=== PATIENT | female | born 1935 | race African-American/Black ===

== ENCOUNTER 2017-08-10 19:50 | Emergency (ER) | payer MEDICARE ==
[~2017-08-10] VITALS: Ht 162.6 cm; Wt 80.0 kg
[2017-08-10] MEDS ORDERED: SODIUM CHLORIDE FLUSH 10ML SYR IVF ONE (20:30)
[2017-08-10] MEDS ORDERED: PLEASE ENTER ALLERGIES MC SCH (20:30)
[2017-08-10] MEDS ORDERED: MORPHINE SULFATE 4 MG/ML, 1ML IVPush PRN (20:30)
[2017-08-10] MEDS ORDERED: MORPHINE SULFATE 4 MG/ML, 1ML ONE (20:31)
[2017-08-10 20:55] LABS: BASOPHILS # (AUTO) 0.02 x10^3/uL (0-0.1); BASOPHILS % (AUTO) 0 % (0-1); EOSINOPHILS # (AUTO) 0.09 x10^3/uL (0-0.4); EOSINOPHILS % (AUTO) 1 % (1-7); LYMPHOCYTES # (AUTO) 1.08 x10^3/uL (1-3.4); LYMPHOCYTES % (AUTO) 11 % (22-44); MD NO; MEAN CORPUSCULAR HEMOGLOBIN 27.7 pg (27.0-34.8); MEAN CORPUSCULAR HGB CONC 32.2 g/dL (32.4-35.8); MEAN CORPUSCULAR VOLUME 85.9 fL (80-100); MEAN PLATELET VOLUME 9.4 fL (7.4-10.4); MONOCYTES # (AUTO) 0.62 x10^3/uL (0.2-0.8); MONOCYTES % (AUTO) 6 % (2-9); NEUTROPHILS % (AUTO) 82 % (42-75); PLATELET COUNT 237 x10^3/uL (130-400); RED BLOOD COUNT 4.63 x10^6/uL (3.82-5.3); RED CELL DISTRIBUTION WIDTH 14.6 % (9.6-15.2)
[2017-08-10 21:08] LABS: ALANINE AMINOTRANSFERASE 29 U/L (12-78); ALBUMIN 3.4 g/dL (3.4-5.0); ANION GAP 10 mmol/L (5-15); CALCIUM 9.3 mg/dL (8.5-10.1); CHLORIDE 106 mmol/L (98-107); CREATININE 1.32 mg/dL (0.55-1.02)
[2017-08-10 21:10] LABS: ALKALINE PHOSPHATASE 85 U/L (45-117); BILIRUBIN,TOTAL 0.4 mg/dL (0.2-1.0); TOTAL PROTEIN 6.6 g/dL (6.4-8.2)
[2017-08-10 21:58] VITALS: BP 117/46
== END 2017-08-10 22:24 | disposition home or self-care (01) ==
LOC: ED 22:22
DX: R55 Syncope and collapse (principal); M79.651 Pain in right thigh; R42 Dizziness and giddiness; E78.5 Hyperlipidemia, unspecified; I10 Essential (primary) hypertension; E11.9 Type 2 diabetes mellitus without complications; I48.91 Unspecified atrial fibrillation
CPT/HCPCS: 36415; 71045; 72170; 80053; 85025; 93005; 96374; 99285

== ENCOUNTER → 2017-09-03 | Outpatient (CLI) | payer MEDICARE ==
[~2017-09-03] MED LIST: GADOBUTROL 7.5 MMOL/7.5 ML VIAL ONE
== END | disposition home or self-care (01) ==
LOC: CFH 12:29
PROVIDERS: ATTEND Psychiatry & Neurology Neurology
DX: I67.82 Cerebral ischemia (principal); R90.82 White matter disease, unspecified; G31.89 Other specified degenerative diseases of nervous system
CPT/HCPCS: 70553; A9585

== ENCOUNTER → 2017-09-07 | Outpatient (CLI) | payer MEDICARE | END | disposition home or self-care (01) | LOC: CARD 12:58 | PROVIDERS: ATTEND Psychiatry & Neurology Neurology | DX: G40.89 Other seizures (principal) | CPT/HCPCS: 95819 ==

== ENCOUNTER 2018-04-12 09:22 | Day surgery (SDC) | payer MEDICARE ==
[~2018-04-12] VITALS: Ht 162.6 cm; Wt 59.0 kg
[2018-04-12] MEDS ORDERED: LIDOCAINE 1%, 20ML ONE (09:40)
[2018-04-12 09:54] VITALS: BP 132/58
== END 2018-04-12 11:27 | disposition home or self-care (01) ==
LOC: CACL 09:22
PROVIDERS: ATTEND Internal Medicine Cardiovascular Disease
DX: R55 Syncope and collapse (principal); E78.5 Hyperlipidemia, unspecified; E11.9 Type 2 diabetes mellitus without complications; D53.1 Other megaloblastic anemias, not elsewhere classified; Z88.1 Allergy status to other antibiotic agents; Z88.8 Allergy status to other drugs, medicaments and biological substances
CPT/HCPCS: 33285; C1764; J3490

== ENCOUNTER 2018-06-03 16:47 | Inpatient (IN) | payer MEDICARE ==
[~2018-06-03] VITALS: Ht 157.5 cm; Wt 62.9 kg
[2018-06-03] MEDS ORDERED: SODIUM CHLORIDE FLUSH 10ML SYR IVF ONE (17:00)
[2018-06-03] MEDS ORDERED: ACETAMINOPHEN 325 MG TABLET PO ONE (17:00)
[2018-06-03] MEDS ORDERED: ACETAMINOPHEN 325 MG TABLET ONE (17:08)
[2018-06-03] MEDS ORDERED: ATOR40TA78 PO (17:24)
[2018-06-03] MEDS ORDERED: METF500T17 PO (17:24)
[2018-06-03] MEDS ORDERED: LISI-167 PO (17:24)
[2018-06-03] MEDS ORDERED: DONE5TAB14 PO (17:24)
[2018-06-03] MEDS ORDERED: GLIM4TAB2 PO (17:24)
[2018-06-03 17:36] LABS: BASOPHILS # (AUTO) 0.01 x10^3/uL (0-0.1); BASOPHILS % (AUTO) 0 % (0-1); EOSINOPHILS # (AUTO) 0.04 x10^3/uL (0-0.4); EOSINOPHILS % (AUTO) 1 % (1-7); LYMPHOCYTES # (AUTO) 0.32 x10^3/uL (1-3.4); LYMPHOCYTES % (AUTO) 5 % (22-44); MD NO; MEAN CORPUSCULAR HEMOGLOBIN 27.7 pg (27.0-34.8); MEAN CORPUSCULAR HGB CONC 32.9 g/dL (32.4-35.8); MEAN PLATELET VOLUME 9.4 fL (7.4-10.4); MONOCYTES # (AUTO) 0.59 x10^3/uL (0.2-0.8); MONOCYTES % (AUTO) 9 % (2-9); NEUTROPHILS # (AUTO) 5.54 x10^3/uL (1.8-6.8); NEUTROPHILS % (AUTO) 85 % (42-75); PLATELET COUNT 206 x10^3/uL (130-400); RED CELL DISTRIBUTION WIDTH 15.3 % (9.6-15.2)
[2018-06-03 17:42] LABS: INTERNATIONAL NORMALIZED RATIO 1.04 (0.93-1.1); PROTHROMBIN TIME 10.9 Seconds (9.6-11.5)
[2018-06-03 17:45] LABS: ALANINE AMINOTRANSFERASE 30 U/L (12-78); ALBUMIN 3.5 g/dL (3.4-5.0); ANION GAP 8 mmol/L (5-15); CALCIUM 8.5 mg/dL (8.5-10.1); CHLORIDE 108 mmol/L (98-107); CREATININE 1.62 mg/dL (0.55-1.02)
[2018-06-03 17:47] LABS: ALKALINE PHOSPHATASE 90 U/L (45-117); BILIRUBIN,TOTAL 0.2 mg/dL (0.2-1.0); TOTAL PROTEIN 6.6 g/dL (6.4-8.2)
--- NOTE | 2018-06-03 17:49 | NUR ---
IV started and UA sent to lab and flu swab sent to lab.
[2018-06-03 18:26] LABS: RAPID INFLUENZA A Negative (Negative); RAPID INFLUENZA B Negative (Negative)
[2018-06-03 18:45] LABS: MICROSCOPIC NOT IND
--- NOTE | 2018-06-03 18:45 | NUR ---
Resting in ggurney. Daughter at bedside. No needs.
[2018-06-03 18:49] LABS: CULTURE INDICATED? NO
[2018-06-03] MEDS ORDERED: SODIUM CHLORIDE FLUSH 10ML SYR IVF PRN (19:30)
--- NOTE | 2018-06-03 19:48 | NUR ---
Report to BRIDGETT Funk.
[2018-06-03 20:23] VITALS: BP 100/52
[2018-06-03] MEDS ORDERED: SODIUM CHLORIDE 0.9% 1,000 ML IV SCH (20:24)
[2018-06-03] MEDS ORDERED: hydrALAzine 20 MG/ML, 1ML IVPush PRN (20:30)
[2018-06-03] MEDS ORDERED: POLYETHYLENE GLYCOL 17 GM PACKET PO PRN (20:30)
[2018-06-03] MEDS: INSULIN LISPRO 100 UNITS/ML, PEN SQ-INSULIN SCH (22:13)
[2018-06-03] MEDS: PIPERACILLIN/TAZO/PMX 3.375GM 50 ML IV SCH (22:13)
[2018-06-03] MEDS: ATORVASTATIN 10 MG TABLET PO SCH (22:13)
[2018-06-04 01:28] VITALS: BP 118/57
[2018-06-04] MEDS: ACETAMINOPHEN 325 MG TABLET PO PRN ×2 (01:35→19:12)
[2018-06-04 05:30] LABS: MEAN CORPUSCULAR HEMOGLOBIN 27.4 pg (27.0-34.8); MEAN CORPUSCULAR HGB CONC 32.8 g/dL (32.4-35.8); MEAN CORPUSCULAR VOLUME 83.4 fL (80-100); MEAN PLATELET VOLUME 9.4 fL (7.4-10.4); PLATELET COUNT 187 x10^3/uL (130-400); RED BLOOD COUNT 3.91 x10^6/uL (3.82-5.3); RED CELL DISTRIBUTION WIDTH 14.6 % (9.6-15.2)
[2018-06-04 05:33] LABS: ALANINE AMINOTRANSFERASE 31 U/L (12-78); ALBUMIN 2.8 g/dL (3.4-5.0); ANION GAP 3 mmol/L (5-15); CALCIUM 8.2 mg/dL (8.5-10.1); CHLORIDE 113 mmol/L (98-107); CREATININE 1.44 mg/dL (0.55-1.02)
[2018-06-04 05:35] LABS: ALKALINE PHOSPHATASE 73 U/L (45-117); BILIRUBIN,TOTAL 0.3 mg/dL (0.2-1.0); TOTAL PROTEIN 5.7 g/dL (6.4-8.2)
[2018-06-04] MEDS: PIPERACILLIN/TAZO/PMX 3.375GM 50 ML IV SCH ×3 (06:18→21:20)
[2018-06-04 06:39] LABS: MD YES
[2018-06-04 06:45] LABS: BAND#(MANUAL) 0.08 x10^3/uL; BANDS%(MANUAL) 2 % (0-7); EOS#(MANUAL) 0.04 x10^3/uL (0.0-0.4); EOS% (MANUAL) 1 % (1-7); LYMPH#(MANUAL) 0.84 x10^3/uL (1-3.4); LYMPHS% (MANUAL) 20 % (22-44); MONOS#(MANUAL) 0.59 x10^3/uL (0.3-2.7); MONOS% (MANUAL) 14 % (2-9); REACTIVE LYMPHS # (MANUAL) 0.04 x10^3/uL (0-0); REACTIVE LYMPHS % (MANUAL) 1 % (0-0); SEGS% (MANUAL) 62 % (42-75)
[2018-06-04 06:47] LABS: ANISOCYTOSIS 1+
[2018-06-04 06:48] LABS: <PLATELET ESTIMATE> ADEQUATE; OVALOCYTES 1+
[2018-06-04 06:49] LABS: LARGE PLATELETS 1+
[2018-06-04] MEDS: INSULIN LISPRO 100 UNITS/ML, PEN SQ-INSULIN SCH ×4 (07:18→21:20)
[2018-06-04 07:46] VITALS: BP 118/58
[2018-06-04] MEDS: LISINOPRIL 10 MG TABLET PO SCH (08:28)
[2018-06-04 14:00] VITALS: BP 115/62
[2018-06-04 18:55] VITALS: BP 119/63
[2018-06-04] MEDS: ATORVASTATIN 10 MG TABLET PO SCH (21:20)
[2018-06-04] MEDS ORDERED: VANCOMYCIN PER PHARMACY MC PRN (21:30)
[2018-06-04] MEDS ORDERED: PHARMACOKINETIC MONITORING MC PRN (21:30)
[2018-06-04] MEDS ORDERED: VANCOMYCIN 1,300 MG in SODIUM CHLORIDE 0.9% 250 ML IV SCH (21:30)
[2018-06-04] MEDS ORDERED: PHARMACOKINETIC CONSULTATION MC ONE (21:30)
[2018-06-05 01:25] VITALS: BP 109/51
[2018-06-05] MEDS: PIPERACILLIN/TAZO/PMX 3.375GM 50 ML IV SCH ×3 (06:20→22:25)
[2018-06-05] MEDS: INSULIN LISPRO 100 UNITS/ML, PEN SQ-INSULIN SCH ×4 (07:00→20:10)
[2018-06-05 07:29] VITALS: BP 114/54
[2018-06-05 07:52] LABS: MEAN CORPUSCULAR HGB CONC 32.2 g/dL (32.4-35.8); MEAN CORPUSCULAR VOLUME 83.9 fL (80-100); MEAN PLATELET VOLUME 9.1 fL (7.4-10.4); PLATELET COUNT 184 x10^3/uL (130-400); RED CELL DISTRIBUTION WIDTH 15.5 % (9.6-15.2)
[2018-06-05] MEDS: GUAIFENESIN ER 600 MG TABLET PO SCH ×2 (08:09→20:10)
[2018-06-05] MEDS: LISINOPRIL 10 MG TABLET PO SCH (08:10)
[2018-06-05 10:00] LABS: MD YES
[2018-06-05 10:03] LABS: BAND#(MANUAL) 0.07 x10^3/uL; BANDS%(MANUAL) 2 % (0-7)
[2018-06-05 10:04] LABS: LYMPH#(MANUAL) 1.77 x10^3/uL (1-3.4); LYMPHS% (MANUAL) 52 % (22-44); MONOS#(MANUAL) 0.71 x10^3/uL (0.3-2.7); MONOS% (MANUAL) 21 % (2-9); SEG#(MANUAL) 0.85 x10^3/uL (1.8-6.8); SEGS% (MANUAL) 25 % (42-75)
[2018-06-05 10:05] LABS: <PLATELET ESTIMATE> ADEQUATE; <PLT MORPHOLOGY> NORMAL PLT MORPH; ANISOCYTOSIS 1+; OVALOCYTES 1+
[2018-06-05 13:41] VITALS: BP 126/57
[2018-06-05 19:32] VITALS: BP 122/71
[2018-06-05] MEDS: ATORVASTATIN 10 MG TABLET PO SCH (20:10)
[2018-06-06 00:02] VITALS: BP 103/58
[2018-06-06] MEDS: INSULIN LISPRO 100 UNITS/ML, PEN SQ-INSULIN SCH ×4 (07:00→19:49)
[2018-06-06 07:29] VITALS: BP 110/59
[2018-06-06 07:40] LABS: MEAN CORPUSCULAR HEMOGLOBIN 26.6 pg (27.0-34.8); MEAN CORPUSCULAR HGB CONC 32.2 g/dL (32.4-35.8); MEAN CORPUSCULAR VOLUME 82.8 fL (80-100); MEAN PLATELET VOLUME 9.3 fL (7.4-10.4); PLATELET COUNT 205 x10^3/uL (130-400); RED BLOOD COUNT 4.63 x10^6/uL (3.82-5.3); RED CELL DISTRIBUTION WIDTH 15.4 % (9.6-15.2)
[2018-06-06] MEDS: PIPERACILLIN/TAZO/PMX 3.375GM 50 ML IV SCH (07:41)
[2018-06-06 08:14] LABS: BASOPHILS # (AUTO) 0.01 x10^3/uL (0-0.1); BASOPHILS % (AUTO) 0 % (0-1); EOSINOPHILS # (AUTO) 0.02 x10^3/uL (0-0.4); EOSINOPHILS % (AUTO) 1 % (1-7); LYMPHOCYTES % (AUTO) 65 % (22-44); MD SCAN; MONOCYTES # (AUTO) 0.47 x10^3/uL (0.2-0.8); MONOCYTES % (AUTO) 14 % (2-9); NEUTROPHILS # (AUTO) 0.69 x10^3/uL (1.8-6.8); NEUTROPHILS % (AUTO) 20 % (42-75)
[2018-06-06 10:24] LABS: ANION GAP 4 mmol/L (5-15); CALCIUM 8.5 mg/dL (8.5-10.1); CHLORIDE 112 mmol/L (98-107); CREATININE 1.34 mg/dL (0.55-1.02)
[2018-06-06] MEDS: GUAIFENESIN ER 600 MG TABLET PO SCH ×2 (10:31→19:39)
[2018-06-06] MEDS: LISINOPRIL 10 MG TABLET PO SCH (10:31)
[2018-06-06 10:43] LABS: HEMOGLOBIN A1C 5.5 % (4.2-6.3)
[2018-06-06 16:11] VITALS: BP 115/63
[2018-06-06 18:57] VITALS: BP 99/54
[2018-06-06] MEDS: ATORVASTATIN 10 MG TABLET PO SCH (19:39)
[2018-06-07 02:18] VITALS: BP 105/58
[2018-06-07 06:44] VITALS: BP 101/62
[2018-06-07] MEDS: INSULIN LISPRO 100 UNITS/ML, PEN SQ-INSULIN SCH ×2 (07:00→11:20)
[2018-06-07] MEDS: GUAIFENESIN ER 600 MG TABLET PO SCH (08:06)
[2018-06-07] MEDS: LISINOPRIL 10 MG TABLET PO SCH (08:07)
[2018-06-07] MEDS ORDERED: GUAI600T31 PO (09:55)
== END 2018-06-07 12:53 | disposition home or self-care (01) | DRG 682 ==
LOC: ED 19:51 → EDIP 19:52 → 3NE 20:13
PROVIDERS: ADMIT Family Medicine; ATTEND Family Medicine
DX: N17.0 Acute kidney failure with tubular necrosis (principal); G93.41 Metabolic encephalopathy; B33.8 Other specified viral diseases; E11.9 Type 2 diabetes mellitus without complications; E78.5 Hyperlipidemia, unspecified; I10 Essential (primary) hypertension; J40 Bronchitis, not specified as acute or chronic; F03.90 Unspecified dementia, unspecified severity, without behavioral disturbance, psychotic disturbance, mood disturbance, and anxiety
CPT/HCPCS: 36415; 70450; 71045; 71250; 80048; 80053; 81003; 82140; 82565; 82962; 83036; 83605; 84145; 84520; 85025; 85610; 85730; 87040; 87400; 93005; 99285; G0378; J2543; J3370; J1815; J7030; J7050